=== PATIENT | male | born 1960 | race African-American/Black ===

== ENCOUNTER 2018-03-18 16:49 | Inpatient (IN) | payer SELFPAY ==
[~2018-03-18] VITALS: Ht 182.9 cm; Wt 97.5 kg
[2018-03-19 03:14] LABS: CHLORIDE 109 mEq/L (98-107)
[2018-03-19 03:16] LABS: BASOPHILS % 0.5 % (0.0-2.0); EOSINOPHILS % 0.6 % (0.0-5.0); HEMATOCRIT. 43.3 % (42.0-52.0); HEMOGLOBIN. 14.2 g/dL (14.0-18.0); LYMPHOCYTES % 39.2 % (20.0-50.0); MEAN CORPUSCULAR HEMOGLOBIN 31.5 pg (28.0-32.0); MEAN CORPUSCULAR VOLUME 96.1 fL (80.0-94.0); MEAN PLATELET VOLUME 8.8 fl (7.4-10.4); MONOCYTES % 9.5 % (2.0-8.0); NEUTROPHILS % 50.2 % (40.0-76.0); PLATELET 178 x1000/uL (130-400); RED CELL DISTRIBUTION WIDTH 14.9 % (11.6-14.6)
[2018-03-19 03:17] LABS: INR 1.1; PARTIAL THROMBOPLASTIN TIME 26.3 sec (23.4-31.0)
[2018-03-19 03:19] LABS: ETHANOL BLOOD < 10 mg/dL
[2018-03-19] MEDS ORDERED: ASPIRIN 81MG TABLET PO ONE (05:45)
[2018-03-19 05:53] LABS: CLARITY URINE CLOUDY (CLEAR); COLOR URINE ORANGE (YELLOW); KETONES URINE 1+ (NEGATIVE); LEUKOCYTE ESTERASE URINE 2+ (NEGATIVE); NITRITE URINE POSITIVE (NEGATIVE); OCCULT BLOOD URINE 3+ (NEGATIVE); PROTEIN URINE 1+ (NEGATIVE); SPECIFIC GRAVITY URINE 1.034 (1.005-1.030)
[2018-03-19 06:04] LABS: *AMPHETAMINES SCREEN URINE NEGATIVE (NEGATIVE); *BARBITURATES SCREEN URINE NEGATIVE (NEGATIVE); *BENZODIAZEPINES SCREEN URINE PRESUMTIVE POSITIVE (NEGATIVE); *COCAINE SCREEN URINE NEGATIVE (NEGATIVE)
[2018-03-19 06:05] LABS: CANNABINOID URINE SCREEN PRESUMTIVE POSITIVE (NEGATIVE); METHADONE URINE SCREEN NEGATIVE (NEGATIVE); OPIATES URINE SCREEN NEGATIVE (NEGATIVE); PHENCYCLIDINE URINE SCREEN PRESUMTIVE POSITIVE (NEGATIVE)
[2018-03-19 11:30] VITALS: BP 139/99
[2018-03-19 11:33] VITALS: BP 139/99
[2018-03-19] MEDS ORDERED: ONDANSETRON HCL 4MG/2ML VIAL IV PRN (13:45)
[2018-03-19] MEDS ORDERED: GUAIFENESIN 200MG/10ML SUGAR FREE UDC PO PRN (13:45)
[2018-03-19] MEDS ORDERED: NA PHOS,M-B/NA PHOS,DI-BA ENEMA 118ML PR PRN (13:45)
[2018-03-19] MEDS ORDERED: KETOROLAC 15MG/ML VIAL IV PRN (13:45)
[2018-03-19] MEDS ORDERED: NITROGLYCERIN 0.4MG TABLET SL SL PRN (13:45)
[2018-03-19] MEDS ORDERED: DOCUSATE SODIUM 100MG CAPSULE PO PRN (13:45)
[2018-03-19] MEDS ORDERED: ACETAMINOPHEN 325MG TABLET PO PRN (13:45)
[2018-03-19] MEDS ORDERED: CLONIDINE 0.2MG TABLET PO PRN (13:45)
[2018-03-19] MEDS ORDERED: CLONIDINE 0.1MG TABLET PO PRN ×2 (13:45)
[2018-03-19] MEDS ORDERED: MAGNESIUM/ALUMINUM HYDROXIDE/SIMETHICONE 30ML UDC PO PRN (13:45)
[2018-03-19] MEDS ORDERED: LORAZEPAM 2MG/ML CPJ IV PRN (13:45)
[2018-03-19] MEDS ORDERED: IPRATROPIUM/ALBUTEROL 0.5-3(2.5)MG/3ML NEB INH PRN (14:00)
[2018-03-19] MEDS ORDERED: ONDANSETRON 4MG ODT PO PRN (14:15)
[2018-03-19] MEDS: AMLODIPINE 5MG TABLET PO SCH ×2 (15:59→21:43)
[2018-03-19 16:00] VITALS: BP 143/98
[2018-03-19] MEDS: CEFTRIAXONE 1 G PREMIX 50 ML IV SCH (16:00)
[2018-03-19] MEDS ORDERED: MVI, ADULT NO.1 10 ML, FOLIC ACID 1 MG, THIAMINE HCL 100 MG in SODIUM CHLORIDE 0.9% 1,0... IV SCH ×4 (16:00)
[2018-03-19] MEDS: ENOXAPARIN 100MG/ML SYR SUBCUT SCH (16:00)
[2018-03-19 16:49] LABS: CREATINE KINASE MB FRACTION 3.9 ng/mL (0.5-3.6)
[2018-03-19] MEDS: LEVOFLOXACIN 500MG PREMIX 100 ML IV SCH (17:06)
[2018-03-19 20:00] VITALS: BP 134/90
[2018-03-19] MEDS ORDERED: ZOLPIDEM TARTRATE 5MG TABLET PO PRN (21:00)
[2018-03-19] MEDS: METOPROLOL TARTRATE 25MG TABLET PO SCH (21:43)
[2018-03-19] MEDS: FAMOTIDINE 20MG TABLET PO SCH (21:43)
[2018-03-19] MEDS: ASCORBIC ACID 500 MG TABLET PO SCH (21:43)
[2018-03-20] VITALS: BP 134/90
[2018-03-20] MEDS: ENOXAPARIN 100MG/ML SYR SUBCUT SCH ×2 (01:28→14:51)
[2018-03-20 01:31] LABS: CREATINE KINASE MB FRACTION 2.4 ng/mL (0.5-3.6)
[2018-03-20 04:00] VITALS: BP 129/75
[2018-03-20 07:24] LABS: BASOPHILS % 0.4 % (0.0-2.0); EOSINOPHILS % 1.9 % (0.0-5.0); HEMATOCRIT. 38.5 % (42.0-52.0); HEMOGLOBIN. 12.7 g/dL (14.0-18.0); LYMPHOCYTES % 46.1 % (20.0-50.0); MEAN CORPUSCULAR HEMOGLOBIN 31.4 pg (28.0-32.0); MEAN CORPUSCULAR VOLUME 95.6 fL (80.0-94.0); MEAN PLATELET VOLUME 9.5 fl (7.4-10.4); MONOCYTES % 7.2 % (2.0-8.0); NEUTROPHILS % 44.4 % (40.0-76.0); PLATELET 139 x1000/uL (130-400); RED BLOOD CELL COUNT 4.03 mill/uL (4.7-6.1); RED CELL DISTRIBUTION WIDTH 14.3 % (11.6-14.6)
[2018-03-20 07:32] LABS: CHLORIDE 104 mEq/L (98-107)
[2018-03-20 07:41] LABS: LDL CHOLESTEROL 73 mg/dL (5-100)
[2018-03-20 07:43] LABS: CREATINE KINASE 602 IU/L (39-308); CREATINE KINASE MB FRACTION 2.4 ng/mL (0.5-3.6); HDL CHOLESTEROL 59 mg/dL (40-59)
[2018-03-20 08:00] VITALS: BP 106/76
[2018-03-20] MEDS: METOPROLOL TARTRATE 25MG TABLET PO SCH ×2 (09:00→22:04)
[2018-03-20] MEDS ORDERED: ASPIRIN 325MG EC TABLET PO SCH (09:00)
[2018-03-20] MEDS: AMLODIPINE 5MG TABLET PO SCH ×2 (09:00→22:04)
[2018-03-20] MEDS: FAMOTIDINE 20MG TABLET PO SCH ×2 (09:40→22:04)
[2018-03-20] MEDS: ASCORBIC ACID 500 MG TABLET PO SCH ×2 (09:40→22:04)
[2018-03-20] MEDS: ZINC SULFATE 220 MG ( 50 ) CAPSULE PO SCH (09:40)
[2018-03-20] MEDS: ASPIRIN 81MG EC TABLET PO SCH (09:40)
[2018-03-20 12:00] VITALS: BP 109/78
[2018-03-20] MEDS: CEFTRIAXONE 1 G PREMIX 50 ML IV SCH (14:51)
[2018-03-20] MEDS: LEVOFLOXACIN 500MG PREMIX 100 ML IV SCH (15:56)
[2018-03-20 16:00] VITALS: BP 150/94
[2018-03-20 20:00] VITALS: BP 150/82
[2018-03-20] MEDS: NEOMY SULF/BACITRAC ZN/POLY OINT 28GM TOP SCH (22:15)
[2018-03-21] VITALS: BP 105/63
[2018-03-21] MEDS: ENOXAPARIN 100MG/ML SYR SUBCUT SCH ×2 (01:32→14:43)
[2018-03-21 04:00] VITALS: BP 103/63
[2018-03-21 07:11] LABS: BASOPHILS % 0.3 % (0.0-2.0); EOSINOPHILS % 2.2 % (0.0-5.0); LYMPHOCYTES % 28.1 % (20.0-50.0); MEAN CORPUSCULAR HEMOGLOBIN 31.6 pg (28.0-32.0); MEAN CORPUSCULAR VOLUME 94.6 fL (80.0-94.0); MONOCYTES % 6.1 % (2.0-8.0); NEUTROPHILS % 63.3 % (40.0-76.0); PLATELET 138 x1000/uL (130-400); RED BLOOD CELL COUNT 4.12 mill/uL (4.7-6.1); RED CELL DISTRIBUTION WIDTH 14.2 % (11.6-14.6)
[2018-03-21 08:00] VITALS: BP 115/75
[2018-03-21 08:15] LABS: CHLORIDE 103 mEq/L (98-107)
[2018-03-21] MEDS: AMLODIPINE 5MG TABLET PO SCH ×2 (09:00→21:03)
[2018-03-21] MEDS: ASCORBIC ACID 500 MG TABLET PO SCH ×2 (09:07→21:03)
[2018-03-21] MEDS: FAMOTIDINE 20MG TABLET PO SCH ×2 (09:07→21:03)
[2018-03-21] MEDS: ZINC SULFATE 220 MG ( 50 ) CAPSULE PO SCH (09:07)
[2018-03-21] MEDS: ASPIRIN 81MG EC TABLET PO SCH (09:08)
[2018-03-21] MEDS: METOPROLOL TARTRATE 25MG TABLET PO SCH ×2 (09:09→21:02)
[2018-03-21] MEDS: NEOMY SULF/BACITRAC ZN/POLY OINT 28GM TOP SCH ×2 (09:11→21:03)
[2018-03-21 11:45] VITALS: BP 129/74
[2018-03-21] MEDS: CEFTRIAXONE 1 G PREMIX 50 ML IV SCH (14:41)
[2018-03-21 16:00] VITALS: BP 126/83
[2018-03-21] MEDS: LEVOFLOXACIN 500MG PREMIX 100 ML IV SCH (17:29)
[2018-03-21 20:00] VITALS: BP 137/76
[2018-03-22] VITALS: BP 102/64
[2018-03-22] MEDS: ENOXAPARIN 100MG/ML SYR SUBCUT SCH ×2 (01:53→15:30)
[2018-03-22 04:00] VITALS: BP 97/66
[2018-03-22 08:00] VITALS: BP 105/71
[2018-03-22] MEDS: FAMOTIDINE 20MG TABLET PO SCH ×2 (08:38→21:44)
[2018-03-22] MEDS: ASCORBIC ACID 500 MG TABLET PO SCH ×2 (08:38→21:44)
[2018-03-22] MEDS: METOPROLOL TARTRATE 25MG TABLET PO SCH ×2 (08:38→21:44)
[2018-03-22] MEDS: ZINC SULFATE 220 MG ( 50 ) CAPSULE PO SCH (08:38)
[2018-03-22] MEDS: ASPIRIN 81MG EC TABLET PO SCH (08:38)
[2018-03-22] MEDS: AMLODIPINE 5MG TABLET PO SCH ×2 (08:39→21:44)
[2018-03-22] MEDS: NEOMY SULF/BACITRAC ZN/POLY OINT 28GM TOP SCH ×2 (08:40→21:43)
[2018-03-22 12:00] VITALS: BP 114/77
[2018-03-22] MEDS: CEFTRIAXONE 1 G PREMIX 50 ML IV SCH (15:30)
[2018-03-22 16:00] VITALS: BP 112/76
[2018-03-22 20:00] VITALS: BP 134/88
[2018-03-23] VITALS: BP 119/78
[2018-03-23] MEDS: ENOXAPARIN 100MG/ML SYR SUBCUT SCH ×2 (03:00→15:24)
[2018-03-23 04:00] VITALS: BP 90/66
[2018-03-23 08:00] VITALS: BP 95/70
[2018-03-23] MEDS: AMLODIPINE 5MG TABLET PO SCH (08:50)
[2018-03-23] MEDS: METOPROLOL TARTRATE 25MG TABLET PO SCH (08:50)
[2018-03-23] MEDS: FAMOTIDINE 20MG TABLET PO SCH (08:51)
[2018-03-23] MEDS: ZINC SULFATE 220 MG ( 50 ) CAPSULE PO SCH (08:51)
[2018-03-23] MEDS: ASPIRIN 81MG EC TABLET PO SCH (08:51)
[2018-03-23] MEDS: ASCORBIC ACID 500 MG TABLET PO SCH (08:51)
[2018-03-23] MEDS: NEOMY SULF/BACITRAC ZN/POLY OINT 28GM TOP SCH (08:52)
[2018-03-23 12:00] VITALS: BP 112/83
[2018-03-23 14:45] VITALS: BP 112/83
== END 2018-03-23 16:25 | disposition home or self-care (01) | DRG 812 ==
LOC: ER 16:49 → EDBD 16:49 → ER 18:27 → 5WST 03-19 05:47 → ENRESERV 03-19 07:58 → CANRESERV 03-19 08:03 → ENRESERV 03-19 10:27
PROVIDERS: ADMIT Internal Medicine; ATTEND Internal Medicine
DX: T40.991A Poisoning by other psychodysleptics [hallucinogens], accidental (unintentional), initial encounter (principal); I21.4 Non-ST elevation (NSTEMI) myocardial infarction; G92 Toxic encephalopathy; E87.0 Hyperosmolality and hypernatremia; I10 Essential (primary) hypertension; N39.0 Urinary tract infection, site not specified; S00.31XA Abrasion of nose, initial encounter; B96.20 Unspecified Escherichia coli [E. coli] as the cause of diseases classified elsewhere; L97.829 Non-pressure chronic ulcer of other part of left lower leg with unspecified severity; L97.819 Non-pressure chronic ulcer of other part of right lower leg with unspecified severity; R31.9 Hematuria, unspecified; T40.7X1A Poisoning by cannabis (derivatives), accidental (unintentional), initial encounter; T42.4X1A Poisoning by benzodiazepines, accidental (unintentional), initial encounter; R32 Unspecified urinary incontinence; W19.XXXA Unspecified fall, initial encounter; Y93.89 Activity, other specified; Y92.89 Other specified places as the place of occurrence of the external cause; Y99.8 Other external cause status; Z59.0 Homelessness; Z79.82 Long term (current) use of aspirin; Z86.73 Personal history of transient ischemic attack (TIA), and cerebral infarction without residual deficits
CPT/HCPCS: 36415; 70450; 71045; 80053; 80061; 80305; 81003; 82550; 82553; 83036; 83605; 83690; 83735; 83880; 84134; 84484; 85025; 85379; 85610; 85730; 87077; 87086; 87186; 93005; 93306; 93970; 99285; G0482; J0696; J1650; J1956; J3411; J3490; J7030; J7040